=== PATIENT | female | born 1965 | race Caucasian/White ===

== ENCOUNTER 2024-02-01 11:03 | Inpatient (IN) | payer OTHER, SELFPAY ==
[2024-02-01] VITALS (8 sets, daily range): BP systolic 137–171; BP diastolic 68–88; BMI 28.1
--- NOTE | 2024-02-01 08:24 | ED.GENMED ---
History of Present Illness
<Aniya Florence PA-C - Last Filed: 02/01/24 12:26>
General
Chief Complaint: Swelling
Source: patient
Exam Limitations: none
Time Seen by Provider: 02/01/24 08:07
Nursing documentation reviewed up to this point in time: agreed with
Travel History
Have you had any contact with someone who has COVID-19?: No
Do you have any symptoms of coronavirus? Fever > 100 degrees, chills, cough, shortness of breath, sore throat, loss of taste or smell, muscle aches, or headache?: No
History of Present Illness
History of Present Illness:
58 y/o F h/o NIDDM
here with left great toe pain and swelling that has been recurrent
she started 2 mo ago and went to PCP, it was distal great toe skin that was red and swollen
she was given medrol dose aram for presumed gout
she had uric acid level checked but it was normal
about 2 weeks later it came back, so on 12/18 she was prescribed doxycycline and another round of abx
she says it did fully resolve
about 2 weeks ago she had one or two days of pain and welling but it resolved
but then returned the past 2 days
she has no gera fever, chills, drainage
she has more pain now than previously
worse to touch and put shoe on.
Past History
<Aniya Florence PA-C - Last Filed: 02/01/24 12:26>
Past History
ED Past Medical History: HTN, Hypercholesterolemia, NIDDM and Other (Hiatel hernia)
ED Past Surgical History: Cholecystectomy
Social History
Tobacco: Smoker (Pack daily)
Alcohol: None
Drug: None
Personal:
Living: with family
Employment: Employed
Review of Systems
<Aniya Florence PA-C - Last Filed: 02/01/24 12:26>
Review of Systems
Allergies reviewed?: Yes
All Other Systems: Not applicable
Phy Exam
<GRACE Jennings Last Filed: 02/01/24 12:26>
Physical Exam
Physical Exam:
GENERAL: Alert , in no apparent distress
EYE: pupils equal and reactive
NECK: Supple
ENT: o/p clr, mmm.
CARDIAC: Regular rate and rhythm .2+ dp pulse cap refill intact
LUNGS: Clear breath sounds bilaterally, no acute respiratory distress, no wheezes/rales/rhonchi
ABDOMEN: Soft, without focal tenderness, no r/g, no cvat, normal bowel sounds
NEUROLOGICAL: Alert and oriented, no focal neuro deficits
SKIN: Warm and dry, skin intact.
MUSCULOSKELETAL: left great toe distal STS with redness, small area that could have been popped pustule, no drainage, very tender, ? fluctuant
ingrown toe nail both sides
no bvious paronychia or felon
IPJ an dMTP normal
PSYCH: Normal and appropriate interaction.
Scores
<GRACE Jennings Last Filed: 02/01/24 12:26>
Heart Failure Risk
Heart Failure Risk Score: Not Applicable
Course
<GRACE Jennings Last Filed: 02/01/24 12:26>
Orders/Labs/Results
Orders:
Orders
02/01/24 07:38
CR Toe(s) Min 2 Vw Left Urgent
Comment:
Reason For Exam: elizabeth/swelling/denies trauma
Indicate Which Toe:: Great
02/01/24 08:33
Bedside Glucose- Treatment ONCE
02/01/24 08:42
Complete Blood Count/With Diff Urgent
Comprehensive Metabolic Panel Urgent
Wound Culture [Wound/Abscess/Other Culture] Urgent
CHA Source: Foot
Specimen Description: Right
02/01/24 08:45
Blood Culture Q30M
CHA Source: Blood/Venous
Specimen Description:
02/01/24 09:15
Blood Culture Q30M
CHA Source: Blood/Venous
Specimen Description:
Vital Signs
Initial and Last Documented VS:
Initial Vital Signs
Temp Pulse Resp BP Pulse Ox
98.1 F 66 18 163/87 99
02/01/24 07:35 02/01/24 07:35 02/01/24 07:35 02/01/24 07:35 02/01/24 07:35
Last Documented Vital Signs
Temp Pulse Resp BP Pulse Ox
98.1 F 62 16 153/70 99
02/01/24 07:35 02/01/24 11:15 02/01/24 11:15 02/01/24 11:15 02/01/24 11:15
<Manfred Delaney MD - Last Filed: 02/01/24 08:47>
Orders/Labs/Results
Orders:
Orders
02/01/24 07:38
CR Toe(s) Min 2 Vw Left Urgent
Comment:
Reason For Exam: elizabeth/swelling/denies trauma
Indicate Which Toe:: Great
02/01/24 08:33
Bedside Glucose- Treatment ONCE
02/01/24 08:42
Complete Blood Count/With Diff Urgent
Comprehensive Metabolic Panel Urgent
Wound Culture [Wound/Abscess/Other Culture] Urgent
CHA Source: Foot
Specimen Description: Right
02/01/24 08:45
Blood Culture Q30M
CHA Source: Blood/Venous
Specimen Description:
02/01/24 09:15
Blood Culture Q30M
CHA Source: Blood/Venous
Specimen Description:
Vital Signs
Initial and Last Documented VS:
Initial Vital Signs
Temp Pulse Resp BP Pulse Ox
98.1 F 66 18 163/87 99
02/01/24 07:35 02/01/24 07:35 02/01/24 07:35 02/01/24 07:35 02/01/24 07:35
Last Documented Vital Signs
Temp Pulse Resp BP Pulse Ox
98.1 F 62 16 153/70 99
02/01/24 07:35 02/01/24 11:15 02/01/24 11:15 02/01/24 11:15 02/01/24 11:15
Procedures
<Aniya Florence PA-C - Last Filed: 02/01/24 12:26>
Incision/Drainage/Joint Aspiration
Left Distal First Toe:
Anethesia: 1% Lidocaine
Preparation: cleaned with Betadine
Type of procedure: incise
Nature of site: abscess
Description of abscess: less than 3cm
Loculations broken up: No
How much fluid was obtained?: small amount
Fluid description: purulent
Treatment: left open for drainage
<Aniya Florence PA-C - Last Filed: 02/01/24 12:26>
MDM/Problems Addressed
Differential Diagnosis Includes:
cellulitis, paronychia, osteo, diabetic foot infection
MDM/Problems Addressed:
58 y/o F niddm
episodes of pain/swelling/redness to distal left great toe
no drainage
has had 2 rounds steorids, 1 round abx
worse today
pain and swelling and rednes s
no systemic symptoms
tender fluctuaant distal toe
seen by ed attending
with her h/o dm. concern for osteo or diabetic foot infection progressing
I&D successful, large purulence from the area
mild wbc and esr elevtaion
xray indep reviewed, appreciaed some bony changes but radiologist disagrees
will admit for iv abx
<Aniya Florence PA-C - Last Filed: 02/01/24 12:26>
*Critical Care Note
Total Time (30-74mins, 75-104mins- exclusive of procedures): Not Applicable
ED Attending Note
<Aniya Florence PA-C - Last Filed: 02/01/24 12:26>
-
Portions of this chart may have been created with voice recognition software.� Occasional wrong word or��sound alike� substitutions may have occurred due to the inherent limitations of voice recognition software.
<Manfred Delaney MD - Last Filed: 02/01/24 08:47>
ED Attending Note
Patient seen and examined by attending physician: Yes
ED Attending Note:
I have seen and evaluated the patient with a [id number] encounter. I have spoken to the advance practicer provider and involved in the medical history, the physical exam, medical decision making.
Evaluation and management service: agree unless noted differently below.
Results interpretation: agree unless noted differently below.
Focused HPI: 58-year-old female with a past medical history of hypertension, diabetes who presents to the emergency room for evaluation of left toe pain and redness. Patient reports that she has been having redness and pain, swelling in the distal
left toe for the past 2 months off and on. She was initially seen by her primary and they thought it could be related to gout and she was started on a course of steroids which briefly helped but then her symptoms returned. She had a uric acid
checked that was negative and when she returned with recurrent symptoms she was started on doxycycline in addition to steroid�symptoms once again improved for a brief period of time and then returned recently after a pedicure. Came to the emergency
room for assessment. She has not had any fevers or chills. She has not had the trauma to the toe. She denies any other complaints.
Physical exam: Awake alert not in distress. Hypertensive but otherwise normal vitals. She has significant erythema and swelling of the left first toe and fullness of the tip of the toe with a tiny pustule but no active drainage; entire toe is
intensely tender to touch.
Medical Decision Makin-year-old female presents for evaluation of recurrent redness and swelling, pain in the left big toe. Her exam today is concerning for toe infection. She was sent for an x-ray which seems to show some erosion of the
distal phalanx concerning for osteomyelitis. She has a tiny pustule will plan to anesthetize and incise this area and send culture. Will check labs. Will plan for admission for treatment of recurrent diabetic toe infection and concern for
osteomyelitis.
Discharge Plan
Departure
Patient Disposition: Admit
Date of Disposition: 02/01/24
Time of Disposition: 09:34
Admit to: Med/Surg
Presentation/result/management discussed w/ accepting MD/DO: Hospitalist
Condition: Fair
Covid-19: Not Applicable
Discharge Problem:
Diabetic foot infection
Interventions
Interventions:
*Risk Screen - Suicide Last Done: 02/01/24 07:35
*General Assessment Last Done: 02/01/24 07:35
*Neglect/Abuse Screening Last Done: 02/01/24 07:35
ED- Fall Risk Assessment Last Done: 02/01/24 08:43
*ED COVID-19 Vaccine History Last Done: 02/01/24 07:35
ED- Pulmonary Assessment Last Done: 02/01/24 08:43
ED-Skin Assessment Last Done: 02/01/24 08:43
[2024-02-01 09:11] LABS: ALT (SGPT) 16 U/L (0-35); AST (SGOT) 19 U/L (14-36); Albumin 4.3 g/dl (3.5-5.0); Alkaline Phosphatase 101 U/L (38-126); Blood Urea Nitrogen 16 mg/dl (7-17); Carbon Dioxide 26 mmol/L (22-30); Chloride 108 mmol/L (98-107); Estimated Creatinine Clearance 90 ml/min; Glucose 126 mg/dl (70-99); Potassium 4.1 mmol/L (3.5-5.1); Sodium 141 mmol/L (135-145); Total Bilirubin 0.2 mg/dl (0.2-1.3); Total Protein 7.2 g/dl (6.3-8.2); eGFR > 60.00
[2024-02-01 09:15] LABS: C-Reactive Protein < 5.00 mg/L (0.0-10.00)
[2024-02-01 09:21] LABS: % Basophils 0.4 % (0-2); % Eosinophils 1.8 % (0-6); % Immature Granulocytes 0.4 % (0-0.5); % Lymphocytes 26.1 % (20.5-51.1); % Monocytes 7.7 % (1.7-9.3); % Neutrophils 63.6 % (42.2-75.2); Absolute Eosinophils 0.2 10^3/uL (0-0.7); Absolute Immature Granulocytes 0.1 10^3/uL (0-0.05); Absolute Lymphocytes 2.9 10^3/uL (1.2-3.4); Absolute Monocytes 0.9 10^3/uL (0.1-0.6); Absolute Neutrophils 7.1 10^3/uL (1.4-6.5); Hematocrit 38.7 % (37.0-47.0); Hemoglobin 13.2 g/dL (12.0-16.0); Mean Corp Hgb Conc. 34.1 g/dL (33.0-37.0); Mean Corpuscular Hgb 29.2 pg (27.0-31.0); Mean Corpuscular Volume 85.6 fL (81.0-99.0); Mean Platelet Volume 10.3 fL (7.4-10.4); Nucleated Red Blood Cells % 0 %; Platelet Count 307 10^3/uL (130-400); Red Blood Cell Count 4.52 10^6/uL (4.20-5.40); Red Cell Dist. Width 13.8 % (11.5-14.5); White Blood Cell Count 11.2 10^3/uL (4.8-10.8)
[2024-02-01 09:31] LABS: Erythrocyte Sed Rate 28 mm/hour (0-20)
--- NOTE | 2024-02-01 10:42 | HPS.HSE ---
Family Physician
-
Family Physician: Carito Thorne
Chief Complaint
-
Worsening left great toe pain, swelling, redness
History of Present Illness
58-year-old female with a past medical history of hypertension, hyperlipidemia, type 2 diabetes, and gastroesophageal reflux disease presents with worsening pain, swelling, redness of her left great toe. Patient states that 2 months ago, she
started having pain, swelling, redness of her left great toe. She was treated with steroids for possible gout. Her symptoms did improve, but then recurred a few weeks later. She was then treated with steroids and antibiotic for cellulitis. Her
symptoms did improve, however recurred Sunday. She denies fever, chills. No chest pain, shortness of breath. No nausea, no vomiting.
Medical History
Past Medical History
Past Medical History: Reports Other
Additional Past Medical History:
HTN, Hypercholesterolemia, NIDDM, cigarette nicotine dependency, hiatal hernia, anxiety/depression
Past Surgical History: Reports Cholecystectomy
Social History
Tobacco: Smoker (1 pack/day)
Alcohol: None
Drug: None
Personal:
Living: With Family
Family History
Family History: Not pertinent
Allergies / Home Medications
Allergies reflects when Allergies were last updated in [facility].
Home Medications with original date entered in [facility]
Allergy/Medication List:
Allergies
Allergy/AdvReac Type Severity Reaction Status Date / Time
ciprofloxacin [From Cipro] Allergy very Verified 02/01/24 07:38
sick,sweaty
ciprofloxacin HCl Allergy very Verified 02/01/24 07:38
[From Cipro] sick,sweaty
Home Medications Table - record
�Medication �Instructions �Recorded �Confirmed
amlodipine 5 mg tablet (Norvasc) 5 mg PO DAILY Blood Pressure 02/01/24 02/01/24
cholecalciferol (vitamin D3) 25 25 mcg PO DAILY Supplement 02/01/24 02/01/24
mcg (1,000 unit) tablet (Vitamin
D3)
cyanocobalamin (vitamin B-12) 1,000 mcg PO DAILY Supplement 02/01/24 02/01/24
1,000 mcg tablet
empagliflozin 10 mg tablet 10 mg PO DAILY diabetes 02/01/24 02/01/24
(Jardiance)
escitalopram oxalate 20 mg tablet 20 mg PO DAILY depression/anxiety 02/01/24 02/01/24
(Lexapro)
famotidine 40 mg tablet (Pepcid) 40 mg PO DAILY Gastrointestinal 02/01/24 02/01/24
Issue
pantoprazole 40 mg granules 40 mg PO DAILY Gastrointestinal 02/01/24 02/01/24
delayed-release for susp in packet Issue
(Protonix)
rosuvastatin 40 mg tablet (Crestor) 40 mg PO DAILY High Cholesterol 02/01/24 02/01/24
semaglutide 1 mg/dose (4 mg/3 mL) 1 mg SC MEDELLIN diabetes 02/01/24 02/01/24
subcutaneous pen injector (Ozempic)
therapeutic multivitamin 1 tab PO DAILY Supplement 02/01/24 02/01/24
valsartan 160 mg tablet 160 mg PO DAILY Blood Pressure 02/01/24 02/01/24
Review of Systems
-
A 12 point ROS was completed and negative except as noted: Yes
Physical Exam
Vital Signs
Vital Signs
Temp Pulse Resp BP Pulse Ox
98.1 F 64 16 154/71 98
02/01/24 07:35 02/01/24 10:15 02/01/24 10:15 02/01/24 10:15 02/01/24 10:15
Physical Exam
General: Well Developed, Well Nourished and No Apparent Distress
HEENT: NormoCephalic, Anicteric and Moist mucous membranes
Respiratory: Clear
Cardiac: S1/S2 and Regular Rhythm
GI: Soft, Non Tender, Non Distended and Normal Bowel Sounds
Musculoskeletal: No Clubbing, No Cyanosis and No Edema
Skin: Other (Diffuse erythema, edema, tenderness of the great big toe, incision dressed)
Neuro: Awake, Alert and AO x 3
Psych: Calm
Laboratory Results
-
02/01/24:46
02/01/24:46
Laboratory Results
Total Bilirubin 0.2 mg/dl (0.2-1.3) 02/01/24:
AST 19 U/L (14-36) 02/01/24:
ALT 16 U/L (0-35) 02/01/24:
Alkaline Phosphatase 101 U/L (38-126) 02/01/24:46
Impression/Plan
-
HPI: 58-year-old female with a past medical history of hypertension, hyperlipidemia, type 2 diabetes, and gastroesophageal reflux disease presents with worsening pain, swelling, redness of her left great toe. Patient states that 2 months ago, she
started having pain, swelling, redness of her left great toe. She was treated with steroids for possible gout. Her symptoms did improve, but then recurred a few weeks later. She was then treated with steroids and antibiotic for cellulitis. Her
symptoms did improve, however recurred Sunday. She denies fever, chills. No chest pain, shortness of breath. No nausea, no vomiting.
#Cellulitis of left great toe with abscess
Uric acid 2.5, normal
Status post I&D in the ED draining a small amount of purulent material, sent for cultures
Status post vancomycin and Unasyn in the ED
Will continue vancomycin, change Unasyn to Ancef
Consult wound care
Pain control, trend fever and white count
#Benign essential hypertension
Continue valsartan 160 mg daily
Blood pressure elevated, increase amlodipine from 5 mg daily to 10 mg daily
#Type 2 diabetes
Continue Jardiance, carb controlled diet, sliding scale insulin
She is on Ozempic at home
#Cigarette nicotine dependency
Cigarette cessation counseling has been provided
#Gastroesophageal reflux disease
Continue Pepcid, Protonix
#Anxiety/depression
Continue Lexapro
DVT prophylaxis�subcu Lovenox
Full code
Total time spent to see the patient on the floor, examine the patient, review data and lab results, discuss treatment plan with patient, nursing staff around 75 minutes.
[2024-02-01] MEDS: UNASYN IV (10:57)
[2024-02-01 11:29] LABS: Uric Acid 2.5 mg/dl (2.5-6.2)
[2024-02-01] MEDS: VANCOCIN 300 MG IV (12:12)
[2024-02-01] MEDS: VANCOCIN 300 ML IV (12:12)
[2024-02-01] MEDS: ANCEF 5 IV (15:55)
--- NOTE | 2024-02-01 16:30 | PHA.VAN.IN ---
Assessment
- Assessment
Renal Function: Appears similar to baseline
Concomitant Antimicrobials: ANCEF
- Previous Dosing Experience
Previous Regimen: NONE
AUC Dosing Plan
- Dosing Variables
Dosing Weight (kg): 67.4
Dosing CrCl (ml/min): 90
Vd coefficient (L/kg): 0.7
- Empiric Dosing
Initial / Loading Dose: 1500MG
Maintenance Regimen: 750MG IV Q12H
Estimated AUC (mcg*h/mL): 418
Estimated Peak (mcg*h/mL): 25.9
Estimated Trough (mcg/ml): 10.9
Estimated Half Life (H): 8.8
Pharmacokinetics Vancomycin I
- -
Patient Age: 58
Patient Sex: Female
Vancomycin Day #: 1
Indication: Diabetic Foot
Requesting Provider: ROBERT DAVIDSON
Pertinent Antimicrobial Allergies:
Allergies
ciprofloxacin HCl [From Cipro] Allergy (Verified 02/01/24 07:38)
very sick,sweaty
ciprofloxacin [From Cipro] Allergy (Verified 02/01/24 07:38)
very sick,sweaty
Height / Weight:
Height 5 ft 1 in
Actual Weight 67.4 kg
Pertinent Past Medical History: DM;RECURRENT FOOT INFECTION
- Vital Signs / Lab Results
Temp Pulse Resp BP Pulse Ox
98.1 F 65 16 171/75 99
02/01/24 14:18 02/01/24 14:18 02/01/24 14:18 02/01/24 14:18 02/01/24 15:50
Lab Results - Hematology
02/01/24
08:46
WBC 11.2 H
Lab Results - Chemistry
02/01/24
08:46
BUN 16
Creatinine 0.6
Estimated Creat Clear 90
Albumin 4.3
Microbiology Results
02/01/24 10:58 Gram Stain - Preliminary
Foot - Right
[2024-02-01 16:38] LABS: Glucose - Point of Care 90 mg/dl (70-99)
[2024-02-01] MEDS: LOVENOX 40 MG SC (17:17)
[2024-02-01] MEDS: NORVASC 5 MG PO (17:17)
[2024-02-01] MEDS: TYLENOL 650 MG PO (18:38)
[2024-02-01 21:21] LABS: Glucose - Point of Care 105 mg/dl (70-99)
[2024-02-02] MEDS: ANCEF 5 IV ×3 (00:21→15:45)
[2024-02-02 05:51] VITALS: BMI 27.7
[2024-02-02 06:00] VITALS: BMI 27.7
[2024-02-02] MEDS: VANCOCIN 150 IV ×2 (06:07→17:40)
[2024-02-02 06:17] VITALS: BMI 27.7
[2024-02-02 07:27] VITALS: BP 149/84
[2024-02-02 07:39] LABS: Hematocrit 38.5 % (37.0-47.0); Hemoglobin 13.2 g/dL (12.0-16.0); Mean Corp Hgb Conc. 34.3 g/dL (33.0-37.0); Mean Corpuscular Hgb 30.1 pg (27.0-31.0); Mean Corpuscular Volume 87.7 fL (81.0-99.0); Mean Platelet Volume 10.8 fL (7.4-10.4); Platelet Count 253 10^3/uL (130-400); Red Blood Cell Count 4.39 10^6/uL (4.20-5.40); Red Cell Dist. Width 13.5 % (11.5-14.5); White Blood Cell Count 7.7 10^3/uL (4.8-10.8)
[2024-02-02 08:08] LABS: Glucose - Point of Care 119 mg/dl (70-99)
[2024-02-02] MEDS: LEXAPRO 20 MG PO (08:14)
[2024-02-02] MEDS: CRESTOR 40 MG PO (08:14)
[2024-02-02] MEDS: VITAMIN B-12 1000 MCG PO (08:15)
[2024-02-02] MEDS: VITAMIN D3 (cholecalciferol) 25 MCG PO (08:15)
[2024-02-02] MEDS: PEPCID 40 MG PO (08:15)
[2024-02-02] MEDS: PREVACID 30 MG PO (08:15)
[2024-02-02] MEDS: NORVASC 10 MG PO (08:16)
[2024-02-02] MEDS: DIOVAN 160 MG PO (08:16)
[2024-02-02] MEDS: THERAGRAN 1 TABLET PO (08:16)
[2024-02-02] MEDS: JARDIANCE 10 MG PO (08:16)
[2024-02-02] MEDS: MIRALAX PO (08:18)
--- NOTE | 2024-02-02 08:28 | W.PN.HOSP.TC ---
Today's Communication/Plan
-
See bold
Assessment / Plan
Assessment / Plan
HPI: 58-year-old female with a past medical history of hypertension, hyperlipidemia, type 2 diabetes, and gastroesophageal reflux disease presents with worsening pain, swelling, redness of her left great toe. Patient states that 2 months ago, she
started having pain, swelling, redness of her left great toe. She was treated with steroids for possible gout. Her symptoms did improve, but then recurred a few weeks later. She was then treated with steroids and antibiotic for cellulitis. Her
symptoms did improve, however recurred Sunday. She denies fever, chills. No chest pain, shortness of breath. No nausea, no vomiting.
#Cellulitis of left great toe with abscess
Uric acid 2.5 normal, CRP normal, ESR normal for adjusted age
X-ray negative for bony abnormality
Status post I&D in the ED draining a small amount of purulent material, follow-up on cultures
Status post vancomycin and Unasyn in the ED
Continue vancomycin and Ancef
Consult podiatry, there appears to be an area of fluctuance that likely needs to be drained
Pain control, trend fever and white count
#Benign essential hypertension
Continue valsartan 160 mg daily
Blood pressure elevated, increased amlodipine to 10 mg daily
#Type 2 diabetes
Hemoglobin A1c 7.5
Continue Jardiance, carb controlled diet, sliding scale insulin
She is on Ozempic at home
#Cigarette nicotine dependency
Cigarette cessation counseling has been provided
Start nicotine patch, will need prescription prior to discharge
#Gastroesophageal reflux disease
Continue Pepcid, Protonix
#Anxiety/depression
Continue Lexapro
DVT prophylaxis�subcu Lovenox
Full code
Total time spent to see the patient on the floor, examine the patient, review data and lab results, discuss treatment plan with patient, nursing staff around 51 minutes.
Physical Exam
General: No acute distress
HEENT: Normocephalic, Atraumatic, EOMI, MMM
Respiratory: Clear to Auscultation bilaterally
Cardiac: Normal S1/S2, Regular Rate and Rhythm
GI: Soft, Nontender, Nondistended, Normal Bowel Sounds
Extremities: No Clubbing, Cyanosis, or Edema
Neuro: Nonfocal/Grossly Intact
Psych: Calm, Cooperative
Derm:
Left great toe with improving erythema and edema. Area of fluctuance noted.
Anticipated Discharge: 24 - 48 hours
Subjective/Interval History
-
Date of Service: February 02, 2024
Patient reports improvement in the pain and swelling of her left great toe. No fever, no chest pain, no vomiting.
Objective Data
-
Labs:
Laboratory Results
02/02/24
07:16
WBC 7.7
Hgb 13.2
Hct 38.5
Plt Count 253
Vital Signs:
Vital Signs
Temp Pulse Resp BP Pulse Ox
98.4 F 64 16 149/84 97
02/02/24 07:27 02/02/24 08:16 02/02/24 07:27 02/02/24 08:16 02/02/24 07:27
I&O
02/01/24 02/02/24 02/03/24
06:59 06:59 06:59
Intake Total 720 / 720
Balance 720 / 720
[2024-02-02 08:37] LABS: Magnesium 2.1 mg/dl (1.6-2.3)
[2024-02-02 09:04] LABS: Glycohemoglobin (HgbA1c) 7.5 % (4.0-5.6)
--- NOTE | 2024-02-02 09:52 | PHA.VAN.FU ---
Vancomycin Assessment / Plan
- Assessment
Renal Function: No New Labs Today
WBC's are: Trending Down
In the past 24 hrs, patient has been: Afebrile
Concomitant Antimicrobials: Cefazolin
- Dosing Plan
Continue: Vanc 750mg IV q12H
- Monitoring Plan
No level(s) ordered at this time: Order levels after 02/02 1800 dose
- Follow Up
Pharmacy will continue to follow.
Vancomycin Follow UP
- -
Patient Age: 58
Patient Sex: Female
Vancomycin Day #: 2
Indication: Diabetic Foot
Requesting Provider: ROBERT DAVIDSON
Pertinent Antimicrobial Allergies:
Allergies
ciprofloxacin HCl [From Cipro] Allergy (Verified 02/01/24 07:38)
very sick,sweaty
ciprofloxacin [From Cipro] Allergy (Verified 02/01/24 07:38)
very sick,sweaty
Height / Weight:
Height 5 ft 1 in
Actual Weight 66.497 kg
Pertinent Past Medical History: DM;RECURRENT FOOT INFECTION
- Vital Signs / Lab Results
Temp Pulse Resp BP Pulse Ox
98.4 F 64 16 149/84 97
02/02/24 07:27 02/02/24 08:16 02/02/24 07:27 02/02/24 08:16 02/02/24 08:57
Lab Results - Hematology
02/01/24 02/02/24
08:46 07:16
WBC 11.2 H 7.7
Lab Results - Chemistry
02/01/24
08:46
BUN 16
Creatinine 0.6
Estimated Creat Clear 90
Albumin 4.3
Microbiology Results
02/01/24 08:46 Blood Culture - Preliminary
Blood/Venous No Growth in 24 hours- Final report to follow
02/01/24 08:47 Blood Culture - Preliminary
Blood/Venous No Growth in 24 hours- Final report to follow
02/01/24 10:58 Wound Culture - Preliminary
Foot - Right Gram Stain - Preliminary
[2024-02-02] MEDS: NICODERM TRANSDERMAL 21 MG TRANSDERM (10:07)
[2024-02-02 11:56] LABS: Glucose - Point of Care 137 mg/dl (70-99)
[2024-02-02 15:46] VITALS: BP 145/65
[2024-02-02 15:58] LABS: Glucose - Point of Care 105 mg/dl (70-99)
[2024-02-02] MEDS: LOVENOX 40 MG SC (17:40)
[2024-02-02 21:26] LABS: Glucose - Point of Care 105 mg/dl (70-99)
[2024-02-03] MEDS: ANCEF 5 IV ×2 (01:02→08:50)
[2024-02-03] MEDS: VANCOCIN 150 IV (05:42)
[2024-02-03 06:12] LABS: Hematocrit 38.4 % (37.0-47.0); Hemoglobin 13.6 g/dL (12.0-16.0); Mean Corp Hgb Conc. 35.4 g/dL (33.0-37.0); Mean Corpuscular Hgb 29.9 pg (27.0-31.0); Mean Corpuscular Volume 84.4 fL (81.0-99.0); Mean Platelet Volume 10.5 fL (7.4-10.4); Platelet Count 266 10^3/uL (130-400); Red Blood Cell Count 4.55 10^6/uL (4.20-5.40); Red Cell Dist. Width 13.3 % (11.5-14.5); White Blood Cell Count 8.2 10^3/uL (4.8-10.8)
[2024-02-03 07:30] VITALS: BP 131/72
--- NOTE | 2024-02-03 07:35 | W.PN.HOSP.TC ---
Today's Communication/Plan
-
Discharge today
Assessment / Plan
Assessment / Plan
HPI: 58-year-old female with a past medical history of hypertension, hyperlipidemia, type 2 diabetes, and gastroesophageal reflux disease presents with worsening pain, swelling, redness of her left great toe. Patient states that 2 months ago, she
started having pain, swelling, redness of her left great toe. She was treated with steroids for possible gout. Her symptoms did improve, but then recurred a few weeks later. She was then treated with steroids and antibiotic for cellulitis. Her
symptoms did improve, however recurred Sunday. She denies fever, chills. No chest pain, shortness of breath. No nausea, no vomiting.
#Cellulitis of left great toe with abscess
Uric acid 2.5 normal, CRP normal, ESR normal for adjusted age
X-ray negative for bony abnormality
Status post I&D in the ED draining a small amount of purulent material, cultures show skin claudine
Status post vancomycin and Unasyn in the ED
Currently on vancomycin and Ancef
Appreciate podiatry input, recommend follow-up in the office in 2-3 days for nail removal
Medically stable for discharge on Bactrim and Keflex to complete a 7-day course, she was on doxycycline prior
#Benign essential hypertension
Continue valsartan 160 mg daily
Blood pressure elevated, increased amlodipine to 10 mg daily -prescription provided
#Type 2 diabetes
Hemoglobin A1c 7.5
Continue Jardiance, carb controlled diet, sliding scale insulin
She is on Ozempic at home
#Cigarette nicotine dependency
Cigarette cessation counseling has been provided
Started nicotine patch, prescription provided
#Gastroesophageal reflux disease
Continue Pepcid, Protonix
#Anxiety/depression
Continue Lexapro
DVT prophylaxis�subcu Lovenox
Full code
Physical Exam
General: No acute distress
HEENT: Normocephalic, Atraumatic, EOMI, MMM
Respiratory: Coarse breath sounds diffusely
Cardiac: Normal S1/S2, Regular Rate and Rhythm
GI: Soft, Nontender, Nondistended, Normal Bowel Sounds
Extremities: No Clubbing, Cyanosis, or Edema
Neuro: Nonfocal/Grossly Intact
Psych: Calm, Cooperative
Derm:
Left great toe with improving erythema and edema
Anticipated Discharge: Today
Subjective/Interval History
-
Date of Service: February 03, 2024
Patient reports improvement in the pain and swelling in her left great toe. No fever, no vomiting.
Objective Data
-
Labs:
Laboratory Results
02/03/24
05:41
WBC 8.2
Hgb 13.6
Hct 38.4
Plt Count 266
Vital Signs:
Vital Signs
Temp Pulse Resp BP Pulse Ox
98.7 F 72 16 145/65 97
02/02/24 15:46 02/02/24 15:46 02/02/24 15:46 02/02/24 15:46 02/02/24 15:46
I&O
02/02/24 02/03/24 02/04/24
06:59 06:59 06:59
Intake Total 720 / 720 1260 / 1260
Balance 720 / 720 1260 / 1260
[2024-02-03 08:01] LABS: Glucose - Point of Care 109 mg/dl (70-99)
[2024-02-03] MEDS: NICODERM TRANSDERMAL 21 MG TRANSDERM (08:51)
[2024-02-03] MEDS: VITAMIN B-12 1000 MCG PO (08:52)
[2024-02-03] MEDS: DIOVAN 160 MG PO (08:52)
[2024-02-03] MEDS: MIRALAX 17 GRAMS PO (08:52)
[2024-02-03] MEDS: THERAGRAN 1 TABLET PO (08:52)
[2024-02-03] MEDS: VITAMIN D3 (cholecalciferol) 25 MCG PO (08:52)
[2024-02-03] MEDS: PEPCID 40 MG PO (08:53)
[2024-02-03] MEDS: LEXAPRO 20 MG PO (08:53)
[2024-02-03] MEDS: PREVACID 30 MG PO (08:53)
[2024-02-03] MEDS: CRESTOR 40 MG PO (08:53)
[2024-02-03] MEDS: JARDIANCE 10 MG PO (08:53)
[2024-02-03] MEDS: NORVASC 10 MG PO (08:53)
--- NOTE | 2024-02-03 08:56 | PHA.VAN.FU ---
Vancomycin Assessment / Plan
- Assessment
Renal Function: No New Labs Today
WBC's are: Trending Down
In the past 24 hrs, patient has been: Afebrile
Concomitant Antimicrobials: Cefazolin
- Dosing Plan
Continue: Vanc 750mg IV q12H
- Monitoring Plan
Peak Level: 02/02 at 2030
Trough Level: 02/03 at 0530
- Follow Up
Pharmacy will continue to follow.
Vancomycin Follow UP
- -
Patient Age: 58
Patient Sex: Female
Vancomycin Day #: 3
Indication: Diabetic Foot
Requesting Provider: ROBERT DAVIDSON
Pertinent Antimicrobial Allergies:
Allergies
ciprofloxacin HCl [From Cipro] Allergy (Verified 02/01/24 07:38)
very sick,sweaty
ciprofloxacin [From Cipro] Allergy (Verified 02/01/24 07:38)
very sick,sweaty
Height / Weight:
Height 5 ft 1 in
Actual Weight 66.497 kg
Pertinent Past Medical History: DM;RECURRENT FOOT INFECTION
- Vital Signs / Lab Results
Temp Pulse Resp BP Pulse Ox
97.8 F 73 16 131/72 99
02/03/24 07:30 02/03/24 07:30 02/03/24 07:30 02/03/24 07:30 02/03/24 07:30
Lab Results - Hematology
02/01/24 02/02/24 02/03/24
08:46 07:16 05:41
WBC 11.2 H 7.7 8.2
Lab Results - Chemistry
02/01/24
08:46
BUN 16
Creatinine 0.6
Estimated Creat Clear 90
Albumin 4.3
Microbiology Results
02/01/24 08:46 Blood Culture - Preliminary
Blood/Venous No Growth in 48 hours- Final report to follow
02/01/24 08:47 Blood Culture - Preliminary
Blood/Venous No Growth in 48 hours- Final report to follow
02/01/24 10:58 Wound Culture - Preliminary
Foot - Right Gram Stain - Preliminary
--- NOTE | 2024-02-03 10:00 | CON.MD ---
Consultation - Medical
-
Podiatry consult for swelling left great toe. 58 year old female states that her left great toe became painful approximately 2 months ago with no history of trauma. Saw her PCP and was diagnosed with gout and given a course of oral steroids.
Symptoms improved, then worsened weeks later. was treated with antibiotics and steroids which again improved symptoms, but pain and swelling increased again this past Sunday. She denies fever, chills or vomiting.
PMH includes well controlled diabetes mellitus, Hyperlipidemia and Hypertension
Patient is afebrile with WBC wnl, HgbA1c 7.5
Radiographs show no evidence of cortical changes to indicate osteomyelitis
On exam, pedal pulses are present bilaterally with swelling localized to the distal aspect of the left hallux. Appears dry today, improved as per patient, with minimal drainage present and tenderness to touch only at distal tip of toe. Dried blood
and eschar present under the distal hallux nail.
Impression/Plan
-Paronychia left hallux
Discussed history of the problem with patient and may have been caused by an aggressive pedicure
As nail is only partially attached, bacteria continues to collect under the nail causing recurrent infection.
Suggest discharge on broad spectrum oral antibiotic therapy and twice daily soaks in epsom salts and warm water then dry dressing
Nail removal to be performed in the office this week which should resolve the issue. Patient will call my office Sunday to schedule
-Diabetes Mellitus
--- NOTE | 2024-02-03 11:14 | W.DCSUMMARY ---
Discharge Summary
Discharge Data
Date of Admission: 02/01/24
Date of Discharge: 02/03/24
-
Pending Results: No
Hospital Course
Discharge diagnosis:
Cellulitis of left great toe with abscess
Benign essential hypertension
Type 2 diabetes
Hemoglobin A1c 7.5
Cigarette nicotine dependency
Gastroesophageal reflux disease
Anxiety/depression
Consults: podiatry
Left foot XR:
There is soft tissue swelling but no underlying bony abnormality
Hospital course:
58-year-old female with a past medical history of hypertension, hyperlipidemia, type 2 diabetes, and gastroesophageal reflux disease was admitted for left first toe cellulitis. Uric acid 2.5 normal, CRP normal, ESR normal for adjusted age , x-ray
negative for bony abnormality. Patient had I&D in the ED, draining a small amount of purulent material. Culture showed skin claudine. She received vancomycin and Unasyn in the ED, and was continued on vancomycin and Ancef in the hospital. Patient
was seen in conjunction with podiatry, who states patient has an infected nail bed. Podiatry cleared the patient for discharge on oral antibiotics, and recommends that the patient follow-up with her in the office in 2-3 days to have the nail bed
removed.
Patient has cigarette nicotine dependency, cigarette cessation counseling has been provided. She was started on and will be discharged on a nicotine patch.
Patient has benign essential hypertension, and is on valsartan 160 mg daily, amlodipine 5 mg daily. Her blood pressure was elevated, and her amlodipine was increased to 10 mg daily. Prescription was provided.
Patient is medically stable and cleared by podiatry for discharge on Keflex and Bactrim to complete a 7-day course. She has been instructed to follow-up with podiatry in the office in 2-3 days for left first toenail removal, and her primary care
doctor in 1 week for blood pressure check.
Disposition: Home self-care
Discharge planning: Required 40 minutes
Discharge Plan
-
Patient Disposition: Home (Routine Discharge)
Discharge Diagnosis/Procedures: Cellulitis of left great toe, infected left great toenail, cigarette nicotine dependency, benign essential hypertension
Condition: Fair
Diet: Diabetic, Carb Controlled
Activity: As tolerated
Driving Restrictions: As prior to admission
Activity Restrictions/Additional Instructions:
Twice daily soaks in epsom salts and warm water then dry dressing.
Please follow-up with podiatry in the office for removal of the nail of your left great toe.
Your blood pressure in the hospital was elevated, your amlodipine was increased from 5 mg daily to 10 mg daily.
Take your antibiotics as directed, follow-up with your primary care doctor in 1 week for blood pressure check.
Referrals:
Carito Thorne DO [Family Provider] - in one week
Jazzmine Griffith DPM [Specified Professional Personl] - in two to three days
Prescriptions:
New
amlodipine 10 mg tablet
10 mg PO DAILY Qty: 30 0RF
nicotine 21 mg/24 hr Patch 24 Hour
21 mg transdermal DAILY Qty: 30 0RF
cephalexin 500 mg tablet
500 mg PO QID 5 Days Qty: 20 0RF
acetaminophen [Acetaminophen Pain Relief] 500 mg tablet
1,000 mg PO QID PRN (Reason: fever or pain) Qty: 60 0RF
sulfamethoxazole-trimethoprim [Bactrim DS] 800-160 mg tablet
1 tab PO BID 5 Days Qty: 10 0RF
Continued
famotidine [Pepcid] 40 mg Tablet
40 mg PO DAILY
valsartan 160 mg Tablet
160 mg PO DAILY
escitalopram oxalate [Lexapro] 20 mg Tablet
20 mg PO DAILY
rosuvastatin [Crestor] 40 mg Tablet
40 mg PO DAILY
pantoprazole [Protonix] [address] For Susp In Packet
40 mg PO DAILY
Jardiance 10 mg Tablet
10 mg PO DAILY
Ozempic 1 mg/dose (4 mg/3 mL) Pen Injector
1 mg SC MEDELLIN
cyanocobalamin (vitamin B-12) 1,000 mcg Tablet
1,000 mcg PO DAILY
therapeutic multivitamin Tablet
1 tab PO DAILY
cholecalciferol (vitamin D3) [Vitamin D3] 25 mcg (1,000 unit) Tablet
25 mcg PO DAILY
Discontinued
amlodipine [Norvasc] 5 mg Tablet
5 mg PO DAILY
Discharge Orders:
Discharge Patient (As Directed); Ordered 02/03/24
Ordered By: Jerry Brandon
Discharge Date and Time
Discharge Date/Time: 02/03/24 12:30
Print Language: GREEK
[2024-02-03 11:35] VITALS: BP 141/71
--- NOTE | 2024-02-03 12:25 | CM ---
Addendum entered by Kay Garcia 02/03/24 12:31:
CM Consult completed: Advance Directive Packet provided
Original Note:
Met with patient and at the bedside
Pharmacy verified: [address], [place]
Patient and live in [facility]; 12 steps to enter; 12 steps between floors; powder room on the 1st floor; 2nd floor bath has tub w/shower
PLOF: reported she is independent with ambulation, steps, and ADLs
DME: [employer]
SNF/Rehab/Home Health utilization history: none
Transportation: will provide ride home
Plan: discharge to home today; no needs
== END 2024-02-03 12:30 | disposition home or self-care (01) | DRG 638 ==
LOC: 3 WEST ACU 11:03
PROVIDERS: Physician Assistant; ADMITTING PHYSICIAN Family Medicine; CONSULT PHYSICIAN Podiatrist Foot & Ankle Surgery; EMERGENCY PHYSICIAN Emergency Medicine; FAMILY PHYSICIAN Family Medicine
DX: E11.628 Type 2 diabetes mellitus with other skin complications (principal); L02.612 Cutaneous abscess of left foot; L03.032 Cellulitis of left toe; E78.00 Pure hypercholesterolemia, unspecified; I10 Essential (primary) hypertension; K21.9 Gastro-esophageal reflux disease without esophagitis; K44.9 Diaphragmatic hernia without obstruction or gangrene; F32.A Depression, unspecified; F41.9 Anxiety disorder, unspecified; F17.210 Nicotine dependence, cigarettes, uncomplicated; Z90.49 Acquired absence of other specified parts of digestive tract; Z88.1 Allergy status to other antibiotic agents; Z79.84 Long term (current) use of oral hypoglycemic drugs
CPT/HCPCS: 10060; 73660; 80053; 82962; 83036; 83735; 84550; 85025; 85027; 85652; 86140; 87040; 87070; 87147; 87205; 99285; 99406

== ENCOUNTER → 2024-02-07 16:41 | Outpatient (REF) | payer OTHER, SELFPAY | LOC: HWWDC 16:41 | PROVIDERS: ATTENDING PHYSICIAN Family Medicine | DX: Z12.31 Encounter for screening mammogram for malignant neoplasm of breast (principal) | CPT/HCPCS: 77063; 77067 ==

== ENCOUNTER → 2024-02-11 06:26 | Day surgery (SDC) | payer OTHER, SELFPAY ==
[2024-02-11 07:59] LABS: Glucose - Point of Care 159 mg/dl (70-99)
== END ==
LOC: GI 06:26
PROVIDERS: ATTENDING PHYSICIAN Internal Medicine Gastroenterology; FAMILY PHYSICIAN Family Medicine
DX: K44.9 Diaphragmatic hernia without obstruction or gangrene (principal); K22.89 Other specified disease of esophagus; K29.80 Duodenitis without bleeding; K29.70 Gastritis, unspecified, without bleeding; R10.13 Epigastric pain
CPT/HCPCS: 43239; 88305; 82962; 88342

== ENCOUNTER → 2024-02-15 10:02 | Outpatient (REF) | payer OTHER, SELFPAY | LOC: HWRAD 10:02 | PROVIDERS: ATTENDING PHYSICIAN Internal Medicine Gastroenterology; FAMILY PHYSICIAN Family Medicine | DX: B18.2 Chronic viral hepatitis C (principal) | CPT/HCPCS: 76700; 93975 ==

== ENCOUNTER → 2024-02-19 07:21 | Outpatient (REF) | payer OTHER, SELFPAY | LOC: RAD 07:21 | PROVIDERS: ATTENDING PHYSICIAN Podiatrist Foot & Ankle Surgery; FAMILY PHYSICIAN Family Medicine | DX: S90.212A Contusion of left great toe with damage to nail, initial encounter (principal); M79.675 Pain in left toe(s) | CPT/HCPCS: 73630 ==

== ENCOUNTER → 2024-03-24 06:38 | Day surgery (SDC) | payer OTHER, SELFPAY ==
[2024-03-24 09:16] LABS: Glucose - Point of Care 128 mg/dl (70-99)
== END ==
LOC: GI 06:38
PROVIDERS: ATTENDING PHYSICIAN Internal Medicine Gastroenterology
DX: Z12.11 Encounter for screening for malignant neoplasm of colon (principal); K64.8 Other hemorrhoids; K63.5 Polyp of colon; D12.4 Benign neoplasm of descending colon; D12.5 Benign neoplasm of sigmoid colon; Z86.010 Personal history of colon polyps
CPT/HCPCS: 45385; 45380; 88305; 82962

== ENCOUNTER → 2024-05-01 12:07 | Outpatient (REF) | payer OTHER, SELFPAY | LOC: PAVMRI 12:07 | PROVIDERS: ATTENDING PHYSICIAN Podiatrist Foot & Ankle Surgery; FAMILY PHYSICIAN Family Medicine | DX: S90.212A Contusion of left great toe with damage to nail, initial encounter (principal); L03.032 Cellulitis of left toe | CPT/HCPCS: 73718 ==

== ENCOUNTER 2024-06-13 06:32 | Day surgery (SDC) | payer OTHER, SELFPAY ==
[2024-05-29 07:22] LABS: % Basophils 0.3 % (0-2); % Eosinophils 2.6 % (0-6); % Immature Granulocytes 0.3 % (0-0.5); % Monocytes 8.5 % (1.7-9.3); % Neutrophils 56.3 % (42.2-75.2); Absolute Eosinophils 0.3 10^3/uL (0-0.7); Absolute Monocytes 0.8 10^3/uL (0.1-0.6); Absolute Neutrophils 5.3 10^3/uL (1.4-6.5); Hematocrit 39.5 % (37.0-47.0); Hemoglobin 13.5 g/dL (12.0-16.0); Mean Corp Hgb Conc. 34.2 g/dL (33.0-37.0); Mean Corpuscular Hgb 29.3 pg (27.0-31.0); Mean Corpuscular Volume 85.7 fL (81.0-99.0); Mean Platelet Volume 10.5 fL (7.4-10.4); Nucleated Red Blood Cells % 0 %; Platelet Count 273 10^3/uL (130-400); Red Blood Cell Count 4.61 10^6/uL (4.20-5.40); Red Cell Dist. Width 13.9 % (11.5-14.5); White Blood Cell Count 9.5 10^3/uL (4.8-10.8)
[2024-05-29 07:52] LABS: ALT (SGPT) 28 U/L (0-35); AST (SGOT) 30 U/L (14-36); Albumin 4.4 g/dl (3.5-5.0); Alkaline Phosphatase 103 U/L (38-126); Blood Urea Nitrogen 18 mg/dl (7-17); Calcium 10.2 mg/dl (8.4-10.2); Carbon Dioxide 25 mmol/L (22-30); Chloride 104 mmol/L (98-107); Glucose 141 mg/dl (70-99); Potassium 4.8 mmol/L (3.5-5.1); Sodium 141 mmol/L (135-145); Total Bilirubin 0.6 mg/dl (0.2-1.3); Total Protein 7.1 g/dl (6.3-8.2); eGFR > 60.00
[2024-06-13 11:11] VITALS: BMI 27.9
[2024-06-13 11:12] VITALS: BMI 27.9
[2024-06-13 11:16] VITALS: BP 156/73
[2024-06-13 11:29] LABS: Glucose - Point of Care 120 mg/dl (70-99)
[2024-06-13] MEDS: NORMOSOL-R/PLASMALYTE-A 1000 IV (11:29)
[2024-06-13 13:04] VITALS: BP 113/56
[2024-06-13 13:15] VITALS: BP 125/62
[2024-06-13 13:30] VITALS: BP 155/69
[2024-06-13 13:45] VITALS: BP 138/76
== END 2024-06-13 14:05 | disposition home or self-care (01) ==
LOC: SDS 06:32
PROVIDERS: ATTENDING PHYSICIAN Podiatrist Foot & Ankle Surgery; FAMILY PHYSICIAN Family Medicine
DX: M86.272 Subacute osteomyelitis, left ankle and foot (principal); E11.59 Type 2 diabetes mellitus with other circulatory complications; F17.200 Nicotine dependence, unspecified, uncomplicated; E78.2 Mixed hyperlipidemia; M79.675 Pain in left toe(s)
CPT/HCPCS: 28124; 88304; 88305; 88311; 36415; 71046; 80053; 82962; 85025; 87070; 87075; 87147; 87176; 87186; 87205; 93005

== ENCOUNTER 2024-08-15 11:45 | Emergency (ER) | payer OTHER, SELFPAY ==
[2024-08-15 12:00] VITALS: BP 175/78
[2024-08-15 12:23] LABS: % Basophils 0.5 % (0-2); % Eosinophils 4.2 % (0-6); % Immature Granulocytes 0.2 % (0-0.5); % Lymphocytes 23.9 % (20.5-51.1); % Monocytes 8.3 % (1.7-9.3); % Neutrophils 62.9 % (42.2-75.2); Absolute Basophils 0.1 10^3/uL (0-0.2); Absolute Eosinophils 0.5 10^3/uL (0-0.7); Absolute Lymphocytes 2.7 10^3/uL (1.2-3.4); Absolute Monocytes 0.9 10^3/uL (0.1-0.6); Hematocrit 40.3 % (37.0-47.0); Hemoglobin 13.9 g/dL (12.0-16.0); Mean Corp Hgb Conc. 34.5 g/dL (33.0-37.0); Mean Platelet Volume 10.5 fL (7.4-10.4); Nucleated Red Blood Cells % 0 %; Platelet Count 258 10^3/uL (130-400); Red Blood Cell Count 4.63 10^6/uL (4.20-5.40); Red Cell Dist. Width 13.8 % (11.5-14.5); White Blood Cell Count 11.2 10^3/uL (4.8-10.8)
[2024-08-15 12:40] LABS: ALT (SGPT) 19 U/L (0-35); AST (SGOT) 19 U/L (14-36); Albumin 4.2 g/dl (3.5-5.0); Alkaline Phosphatase 105 U/L (38-126); Blood Urea Nitrogen 14 mg/dl (7-17); Calcium 9.8 mg/dl (8.4-10.2); Carbon Dioxide 26 mmol/L (22-30); Chloride 107 mmol/L (98-107); Glucose 164 mg/dl (70-99); Potassium 4.2 mmol/L (3.5-5.1); Sodium 140 mmol/L (135-145); Total Bilirubin 0.2 mg/dl (0.2-1.3); eGFR > 60.00
--- NOTE | 2024-08-15 13:45 | ED.GENMED ---
History of Present Illness
General
Chief Complaint: Dizziness
Source: patient
Exam Limitations: none
Time Seen by Provider: 08/15/24 13:04
History of Present Illness
History of Present Illness:
59-year-old female presents with persistent dizziness since 4 days ago. She describes a room spinning sensation. She feels that her ears are full and she is sensitive to light. She notes a slight headache associated with this. She has a history
of vertigo this feels similar. She tried her vestibular maneuvers at home without significant relief. She is nauseous without vomiting. She has history dvf-[id number]-aeiidiwev diabetes. No unilateral numbness or weakness slurred speech or
confusion. No fever.
Past History
Past History
ED Past Medical History: HTN, Hypercholesterolemia, NIDDM and Other (Hiatel hernia)
ED Past Surgical History: Cholecystectomy
Social History
Tobacco: Smoker (Pack daily)
Alcohol: None
Drug: None
Personal:
Living: with family
Employment: Employed
Phy Exam
Physical Exam
Physical Exam:
General: Well-appearing female no acute respiratory distress HEENT: Normocephalic atraumaticPupils equal round reactive to light subtle horizontal nystagmus noted TMs normal
Heart: Regular rate and rhythm no murmurs
Lungs: Clear no wheeze
Neurologic exam: Alert and oriented finger-nose intact czas-su-tapi intact no drift on exam Lamar-Hallpike reproduces symptoms turning to the left
Extremities: No cyanosis
Course
Orders/Labs/Results
Orders:
Orders
08/15/24 12:07
Complete Blood Count/With Diff Urgent
Comprehensive Metabolic Panel Urgent
08/15/24 13:18
CT Head W/o Iv Contrast Urgent
Comment:
Reason For Exam: dizziness
PT Consult [Pt Eval And Treat] Urgent
Treatment: vestibular eval
Activity Level: Ambulate
08/15/24 15:23
Meclizine [Antivert] 25 mg PO NOW STA
Abnormal Lab Results
08/15/24
12:07
WBC 11.2 H 10^3/uL
(4.8-10.8)
MPV 10.5 H fL
(7.4-10.4)
Absolute Neuts (auto) 7.0 H 10^3/uL
(1.4-6.5)
Absolute Monos (auto) 0.9 H 10^3/uL
(0.1-0.6)
Glucose 164 H mg/dl
(70-99)
08/15/24 12:07
08/15/24 12:07
Vital Signs
Initial and Last Documented VS:
Initial Vital Signs
Temp Pulse Resp BP Pulse Ox
98.5 F 77 16 175/78 98
08/15/24 12:00 08/15/24 12:00 08/15/24 12:00 08/15/24 12:00 08/15/24 12:00
Last Documented Vital Signs
Temp Pulse Resp BP Pulse Ox
98.5 F 64 14 158/65 97
08/15/24 12:00 08/15/24 16:45 08/15/24 16:45 08/15/24 16:00 08/15/24 16:45
MDM/Problems Addressed
Differential Diagnosis Includes:
Patient here with dizziness. Differential could include positional vertigo versus migraine. Will check CT for worrisome issues. Labs will be ordered. Consult physical therapy. After vestibular eval consider meclizine
Chronic conditions affecting care: DM and HTN
*Critical Care Note
Total Time (30-74mins, 75-104mins- exclusive of procedures): Not Applicable
Update Note
Update Note:
Patient feeling better after PT evaluation and meclizine. CT was negative. Suspect positional vertigo. Will prescribe meclizine and vestibular rehab. Stable for discharge
ED Attending Note
-
Portions of this chart may have been created with voice recognition software.� Occasional wrong word or��sound alike� substitutions may have occurred due to the inherent limitations of voice recognition software.
Discharge Plan
Departure
Patient Disposition: Home (Routine Discharge)
Date of Disposition: 08/15/24
Time of Disposition: 16:56
Patient with high blood pressure during this ER visit?: No
Discharge Problem:
Vertigo
Instructions: Vertigo (a type of dizziness)
Prescriptions:
New
meclizine 25 mg tablet
25 mg PO TID PRN (Reason: dizziness) Qty: 10 0RF
No Action
famotidine [Pepcid] 40 mg Tablet
40 mg PO DAILY
valsartan 160 mg Tablet
160 mg PO DAILY
escitalopram oxalate [Lexapro] 20 mg Tablet
20 mg PO DAILY
rosuvastatin [Crestor] 40 mg Tablet
40 mg PO DAILY
pantoprazole [Protonix] [address] For Susp In Packet
40 mg PO DAILY
Jardiance 10 mg Tablet
10 mg PO DAILY
Ozempic 1 mg/dose (4 mg/3 mL) Pen Injector
1 mg SC MEDELLIN
cyanocobalamin (vitamin B-12) 1,000 mcg Tablet
1,000 mcg PO DAILY
therapeutic multivitamin Tablet
1 tab PO DAILY
cholecalciferol (vitamin D3) [Vitamin D3] 25 mcg (1,000 unit) Tablet
25 mcg PO DAILY
amlodipine 10 mg tablet
10 mg PO DAILY Qty: 30 0RF
acetaminophen [Acetaminophen Pain Relief] 500 mg tablet
1,000 mg PO QID PRN (Reason: fever or pain) Qty: 60 0RF
albuterol sulfate [ProAir HFA] 90 mcg/actuation Hfa Aerosol Inhaler
2 puff INHALATION 6XD PRN (Reason: sob)
Referrals:
Carito Thorne DO [Family Provider] -
Activity Restrictions/Additional Instructions:
You came with concerns for dizziness. Your workup is consistent with vertigo. Use meclizine as needed for dizziness. Follow-up with vestibular rehab. Return if worse otherwise
Interventions
Interventions:
*Risk Screen - Suicide Last Done: 08/15/24 12:00
*General Assessment Last Done: 08/15/24 14:41
*Neglect/Abuse Screening Last Done: 08/15/24 12:00
ED- Fall Risk Assessment Last Done: 08/15/24 14:41
*ED COVID-19 Vaccine History Last Done: 08/15/24 14:41
ED- Neurological Assessment Last Done: 08/15/24 14:41
Discharge Date and Time
Print Language: ROMANIAN
[2024-08-15 14:25] VITALS: BP 152/84
[2024-08-15] MEDS: ANTIVERT 25 MG PO (15:27)
[2024-08-15 16:00] VITALS: BP 158/65
[2024-08-15 16:57] VITALS: BP 160/66
== END 2024-08-15 17:04 | disposition home or self-care (01) ==
LOC: EMR 11:45
PROVIDERS: Emergency Medicine; EMERGENCY PHYSICIAN Student in an Organized Health Care Education/Training Program; FAMILY PHYSICIAN Family Medicine
DX: R42 Dizziness and giddiness (principal); E11.9 Type 2 diabetes mellitus without complications; E78.00 Pure hypercholesterolemia, unspecified; I10 Essential (primary) hypertension; F17.200 Nicotine dependence, unspecified, uncomplicated; Z90.49 Acquired absence of other specified parts of digestive tract
CPT/HCPCS: 99284; 70450; 80053; 85025

== ENCOUNTER → 2024-08-26 08:42 | Outpatient (REF) | payer OTHER, SELFPAY | LOC: WDC 08:42 | PROVIDERS: ATTENDING PHYSICIAN Family Medicine | DX: L29.89 Other pruritus (principal); N64.52 Nipple discharge; N64.4 Mastodynia | CPT/HCPCS: 76642; 77061; 77065 ==

== ENCOUNTER 2025-01-22 08:17 | Emergency (ER) | payer OTHER, SELFPAY ==
[2025-01-22 08:25] VITALS: BP 157/78
--- NOTE | 2025-01-22 08:50 | ED.GENMED ---
History of Present Illness
General
Chief Complaint: Skin Problem
Source: patient
Exam Limitations: none
Time Seen by Provider: 01/22/25 08:41
Nursing documentation reviewed up to this point in time: agreed with
History of Present Illness
History of Present Illness:
Patient is a 59-year-old female who presents to the ER for evaluation of right hand discomfort. She noticed on Sunday night, 2 days ago that her right hand was sore around (1st MC region ) Yesterday she woke up with redness to the area and
swelling and symptoms of gotten progressively worse. She reports she is very tender at the site and it hurts when she moves her thumb. She denies any associated fever or chills. She denies any known injury to this area. She does report about a
week and a half ago her cat scratched her right index finger however she has no pain in the index finger no redness or swelling to that area.
She has been taking ibuprofen without relief.
Past History
Past History
ED Past Medical History: HTN, Hypercholesterolemia, NIDDM and Other (Hiatel hernia)
ED Past Surgical History: Cholecystectomy
Social History
Tobacco: Smoker (Pack daily)
Alcohol: None
Drug: None
Personal:
Living: with family
Employment: Employed
Review of Systems
Review of Systems
Allergies reviewed?: Yes
All Other Systems: ROS reviewed and negative except as documented in HPI and ROS
Constitutional: Reports no symptoms; Denies fever, fatigue or chills
Musculoskeletal: Reports other (right hand pain /swelling/redness )
Skin: Reports other (see above )
Neurological: Reports no symptoms
Psychiatric: Reports no symptoms
Phy Exam
General Physical Exam
General Presentation: no apparent distress
General age: appears stated age
General Skin: warm and dry
General Habitus: normal
General Mental: alert
General Hydration: appears well hydrated
Neurological Exam
Neurological Exam: alert and oriented x3
Musculoskeletal Exam
Musculoskeletal Exam: other (Right upper extremity strong pulses patient has small area of redness and tenderness to the proximal/base of the right first metacarpal, positive discomfort with range of motion mild generalized hand swelling no erythema
to fingers)
Skin Exam
Skin Exam: normal color and warm/dry
Psychiatric Exam
Psychiatric Exam: normal mood/affect
Course
Orders/Labs/Results
Orders:
Orders
01/22/25 08:49
IV Insert/Care/Rem.- Treatment PRN
Hand, Right 3 View [CR Hand - Right Min 3 Views] Urgent
Comment:
Reason For Exam: redness/ pain to base of right 1st MC
01/22/25 09:05
Complete Blood Count/With Diff Urgent
Comprehensive Metabolic Panel Urgent
Abnormal Lab Results
01/22/25
09:05
Abs Immat Gran (auto) 0.1 H 10^3/uL
(0-0.05)
Absolute Neuts (auto) 6.7 H 10^3/uL
(1.4-6.5)
Absolute Monos (auto) 0.7 H 10^3/uL
(0.1-0.6)
Chloride 110 H mmol/L
(98-107)
BUN 18 H mg/dl
(7-17)
Glucose 159 H mg/dl
(70-99)
01/22/25 09:05
01/22/25 09:05
Vital Signs
Initial and Last Documented VS:
Initial Vital Signs
Temp Pulse Resp Pulse Ox
98.3 F 67 14 100
01/22/25 08:22 01/22/25 08:22 01/22/25 08:22 01/22/25 08:22
Last Documented Vital Signs
Temp Pulse Resp BP Pulse Ox
98.3 F 67 14 157/78 100
01/22/25 08:22 01/22/25 08:22 01/22/25 08:22 01/22/25 08:25 01/22/25 08:22
Career And Transition Teacher consulted with Physician
Career And Transition Teacher consulted with physician?: Yes
Name of Physician Consulted: Tawnya
MDM/Problems Addressed
Differential Diagnosis Includes:
Not limited to arthritic joint pain less likely septic joint less likely cellulitis
MDM/Problems Addressed:
Patient is a 59-year-old female who complains of pain to the right hand with mild redness and swelling. She denies any associated fever or chills. On exam she is very tender proximal first metacarpal/wrist area. There is very minimal redness
however patient has no fevers has normal white count afebrile , clinical symptoms more consistent with joint pain/inflammation less likely infection or septic joint. X-rays do show focal calcification of off the lateral margin of the trapezium
which is new since radiographs. Will DC with outpatient hand follow-up with steroids and Tylenol. I did however review with patient to return if any worsening symptoms including infectious symptoms. She has seen Dr. Khan in the past I did
discuss with her but she will need to be evaluated promptly and we will also give her hand at [facility]. will also place in a Velcro thumb spica wrist splint to allow the joint rest however I did again review with patient to closely
monitor the area
*Radiology
Radiology exam reviewed: radiology read reviewed
*Critical Care Note
Total Time (30-74mins, 75-104mins- exclusive of procedures): Not Applicable
ED Attending Note
-
Portions of this chart may have been created with voice recognition software.� Occasional wrong word or��sound alike� substitutions may have occurred due to the inherent limitations of voice recognition software.
Discharge Plan
Departure
Patient Disposition: Home (Routine Discharge)
Date of Disposition: 01/22/25
Time of Disposition: 11:36
Patient with high blood pressure during this ER visit?: Yes
Condition: Fair
Covid-19: Not Applicable
Discharge Problem:
Joint pain
Instructions: Muscle, joint, and bone pain - Discharge instructions, BLOOD PRESSURE
Prescriptions:
New
prednisone 20 mg tablet
40 mg PO DAILY Qty: 10 0RF
No Action
famotidine [Pepcid] 40 mg Tablet
40 mg PO DAILY
valsartan 160 mg Tablet
160 mg PO DAILY
escitalopram oxalate [Lexapro] 20 mg Tablet
20 mg PO DAILY
rosuvastatin [Crestor] 40 mg Tablet
40 mg PO DAILY
pantoprazole [Protonix] [address] For Susp In Packet
40 mg PO DAILY
Jardiance 10 mg Tablet
10 mg PO DAILY
Ozempic 1 mg/dose (4 mg/3 mL) Pen Injector
1 mg SC MEDELLIN
cyanocobalamin (vitamin B-12) 1,000 mcg Tablet
1,000 mcg PO DAILY
therapeutic multivitamin Tablet
1 tab PO DAILY
cholecalciferol (vitamin D3) [Vitamin D3] 25 mcg (1,000 unit) Tablet
25 mcg PO DAILY
amlodipine 10 mg tablet
10 mg PO DAILY Qty: 30 0RF
acetaminophen [Acetaminophen Pain Relief] 500 mg tablet
1,000 mg PO QID PRN (Reason: fever or pain) Qty: 60 0RF
albuterol sulfate [ProAir HFA] 90 mcg/actuation Hfa Aerosol Inhaler
2 puff INHALATION 6XD PRN (Reason: sob)
meclizine 25 mg tablet
25 mg PO TID PRN (Reason: dizziness) Qty: 10 0RF
Referrals:
Ismael Khan MD [Active] -
Carito Thorne DO [Family Provider] -
Duke Aquino MD [Active] -
Activity Restrictions/Additional Instructions:
As discussed this is likely an inflammatory joint problem. You were given 1 dose of oral steroids here in the ER and a prescription for steroid for the next 5 days was sent to your pharmacy. Take tomorrow as discussed. You may intermittently take
Tylenol for pain. Please intermittently ice the area. You may wear splint for support however closely check the area and return to the ER if any worsening of symptoms including increasing redness, red streaking pain fever chills. Please call
orthopedics today to make an appointment as soon as possible for reevaluation in the next 2 to 3 days.
Interventions
Interventions:
*Risk Screen - Suicide Last Done: 01/22/25 08:25
*General Assessment Last Done: 01/22/25 08:25
*Neglect/Abuse Screening Last Done: 01/22/25 08:25
ED-Skin Assessment Last Done: 01/22/25 09:07
Discharge Date and Time
Print Language: SLOVAK
[2025-01-22 08:59] VITALS: BMI 28.3
[2025-01-22 09:14] LABS: % Basophils 0.3 % (0-2); % Eosinophils 1.6 % (0-6); % Immature Granulocytes 0.5 % (0-0.5); % Lymphocytes 22.8 % (20.5-51.1); % Monocytes 7.4 % (1.7-9.3); % Neutrophils 67.4 % (42.2-75.2); Absolute Eosinophils 0.2 10^3/uL (0-0.7); Absolute Immature Granulocytes 0.1 10^3/uL (0-0.05); Absolute Lymphocytes 2.3 10^3/uL (1.2-3.4); Absolute Monocytes 0.7 10^3/uL (0.1-0.6); Absolute Neutrophils 6.7 10^3/uL (1.4-6.5); Hematocrit 38.8 % (37.0-47.0); Hemoglobin 13.3 g/dL (12.0-16.0); Mean Corp Hgb Conc. 34.3 g/dL (33.0-37.0); Mean Corpuscular Volume 87.6 fL (81.0-99.0); Mean Platelet Volume 10.3 fL (7.4-10.4); Nucleated Red Blood Cells % 0 %; Platelet Count 257 10^3/uL (130-400); Red Blood Cell Count 4.43 10^6/uL (4.20-5.40); Red Cell Dist. Width 13.6 % (11.5-14.5); White Blood Cell Count 9.9 10^3/uL (4.8-10.8)
[2025-01-22 09:27] LABS: ALT (SGPT) 15 U/L (0-35); AST (SGOT) 17 U/L (14-36); Albumin 3.9 g/dl (3.5-5.0); Alkaline Phosphatase 90 U/L (38-126); Blood Urea Nitrogen 18 mg/dl (7-17); Calcium 9.2 mg/dl (8.4-10.2); Carbon Dioxide 27 mmol/L (22-30); Chloride 110 mmol/L (98-107); Estimated Creatinine Clearance 79 ml/min; Glucose 159 mg/dl (70-99); Potassium 4.3 mmol/L (3.5-5.1); Sodium 142 mmol/L (135-145); Total Bilirubin 0.5 mg/dl (0.2-1.3); eGFR > 60.00
[2025-01-22] MEDS: DECADRON 10 MG PO (11:50)
[2025-01-22] MEDS: TYLENOL 650 MG PO (11:50)
[2025-01-22 12:07] VITALS: BP 134/77
== END 2025-01-22 12:08 | disposition home or self-care (01) ==
LOC: EMR 08:17
PROVIDERS: Nurse Practitioner; EMERGENCY PHYSICIAN Emergency Medicine; FAMILY PHYSICIAN Family Medicine
DX: M25.50 Pain in unspecified joint (principal); W55.03XA Scratched by cat, initial encounter; I10 Essential (primary) hypertension; E78.00 Pure hypercholesterolemia, unspecified; E11.9 Type 2 diabetes mellitus without complications; F17.200 Nicotine dependence, unspecified, uncomplicated; Z90.49 Acquired absence of other specified parts of digestive tract
CPT/HCPCS: 99283; 73130; 80053; 85025

== ENCOUNTER → 2025-03-31 07:08 | Outpatient (REF) | payer OTHER, SELFPAY | LOC: RCS 07:08 | PROVIDERS: ATTENDING PHYSICIAN Nurse Practitioner Adult Health; FAMILY PHYSICIAN Family Medicine | DX: R55 Syncope and collapse (principal) | CPT/HCPCS: 93225; 93226; 93306 ==